=== PATIENT | male | born 1960 | race Caucasian/White ===

== ENCOUNTER → 2016-09-19 | Day surgery (SDC) | payer OTHER ==
[~2016-09-19] MED LIST: ALBUTEROL17 GM INH; AMLODIPINE BESY10 MG PO; LISINOPRIL30 MG PO; SYMBICORT80 INH
--- NOTE | ~2016-09-19 | OR ---
Unit #: [id number] #: [id number] Patient: HEMALATHA AMARO [id number] [address] [address] [id number] MR#: [id number] NAME: HEMLAATHA AMARO ROOM: Date of Procedure: 09/19/2016 Admission Date: 09/19/2016 Surgeon: Norman Craig M.D. : 1960 Attending Physician: Norman Craig M.D. Primary Care Physician: [facility]. OPERATIVE REPORT PROCEDURE PERFORMED Colonoscopy with snare polypectomy. INDICATIONS FOR PROCEDURE A 56-year-old gentleman with average risk for colorectal cancer, here for screening colonoscopy. MEDICATIONS Monitored anesthesia. POSTOPERATIVE FINDINGS 1. Polyp, ascending colon, 5 mm, snared and sent for histopathology. 2. Polyp, sigmoid colon x4, snared and sent for histopathology. 3. Rest of the colon was normal with good bowel prep. 4. Diverticulosis. DESCRIPTION OF PROCEDURE The patient was explained of the procedure, risks, and benefits along with risks and benefits of anesthesia. He was brought to the endoscopy room. Propofol anesthesia was given. A rectal exam was done, which was normal. Colonoscope was lubricated, passed up the rectum, advanced under direct vision all the way to the cecum. Cecum was identified by ileocecal valve and appendiceal orifice. I then started to pull the scope out carefully looking. Multiple polyps were seen as described. I retroflexed in the rectum, small hemorrhoids seen. Scope was gently pulled out. He tolerated it well. No major complications were seen. Dictated by... Colin Mayer/heidy TD: 09/20/2016 00:27 JOB #: [id number] CC: Brina Lopez A.P.R.N. Unit #: [id number] #: [id number] Patient: HEMALATHA AMARO OPERATIVE REPORT X Norman Craig MD PROCEDURE OPERATIVE NOTE
== END | disposition home or self-care (01) ==
LOC: COPS 10:04
DX: Z12.11 Encounter for screening for malignant neoplasm of colon (principal); D12.3 Benign neoplasm of transverse colon; K63.5 Polyp of colon; K57.30 Diverticulosis of large intestine without perforation or abscess without bleeding; K64.9 Unspecified hemorrhoids; I10 Essential (primary) hypertension; J45.909 Unspecified asthma, uncomplicated; F17.210 Nicotine dependence, cigarettes, uncomplicated; Z79.899 Other long term (current) drug therapy
CPT/HCPCS: 88305; J2250